=== PATIENT | male | born 1995 | race Caucasian/White ===

== ENCOUNTER 2017-08-10 05:39 | Emergency (ER) | payer SELFPAY ==
--- NOTE | 2017-08-10 06:00 | NUR ---
0310 PT BIB RA 909 WITH LOW BACK PAIN AND SCIATICA.TO WR.
--- NOTE | 2017-08-10 06:03 | NUR ---
0330.PT UP TO ADMITTING.DECIDED NOT TO BE SEEN
== END 2017-08-10 06:06 | disposition left against medical advice (07) ==
LOC: ER 05:44
DX: Z53.21 Procedure and treatment not carried out due to patient leaving prior to being seen by health care provider (principal)